=== PATIENT | male | born 1955 | race Caucasian/White ===

== ENCOUNTER 2022-04-10 11:00 | Emergency (ER) | payer MEDICARE, OTHER, SELFPAY ==
[2022-04-10 11:01] VITALS: BP 133/97; PULSE 76; RESP 16; TEMP 36.6; O2SAT 100; BMI 25.7
--- NOTE | 2022-04-10 11:44 | EDS_ITS ---
HPI History of Present Illness Chief Complaint: Chest Pain Informant: patient Narrative Narrative: Presents referred from his PCP office after being evaluated. Been having substernal chest pain for last 4 weeks on and off worse with laying down. He denies cough. Denies dyspnea. He states feels like a restless legs sensation in his chest. History of hyperlipidemia tobacco years ago. History of Mills's esophagus on omeprazole. He does have normal stools nonbloody no melena. No vomiting. Stress test over 2 years ago no heart caths. EKG from office no isolated T wave version leads III nonspecific. He had surgery left shoulder 6 weeks ago doing well. No exertional symptoms. He was sent here for rule out. Prior Similar Symptoms: No CVD Risk Factors: Positive for Hypercholesterolemia PFSH PFSH Home Medications omeprazole 40 mg capsule,delayed release 40 mg PO DAILY 04/10/22 [History Last Taken Unknown] pravastatin 10 mg tablet 10 mg PO DAILY 04/10/22 [History Last Taken Unknown] Allergy/AdvReac Type Severity Reaction Status Date / Time morphine Allergy Intermediate . Verified 04/10/22 11:02 Social History Smoking Status: Never smoker ROS ROS ED Constitutional Constitutional ED: Denies chills, fever(s) or sweats Eyes Eyes: Denies change in vision ENT ENT ED: Denies dysphagia or sore throat Cardiovascular Cardiovascular: Reports chest pain; Denies leg edema, palpitations or racing heartbeat Respiratory/Chest Respiratory/Chest: Denies cough, dyspnea or dyspnea on exertion Gastrointestinal Gastrointestinal: Denies abdominal pain, diarrhea, nausea or vomiting Genitourinary Genitourinary ED: Denies dysuria, hematuria or urinary frequency Musculoskeletal Musculoskeletal: Denies back pain, extremity pain or neck pain Integumentary Denies rash or wounds Neurologic Neurologic: Denies headache(s), paresthesias or weakness EXAM Physical Exam Const Vital Signs: 04/10/22 11:01 04/10/22 11:07 04/10/22 11:44 Temperature 97.9 F Temperature Source Temporal Pulse Rate 76 Respiratory Rate 16 Respiratory Effort Normal Non-Labored Blood Pressure 133/97 H Blood Pressure Mean 109 Pulse Ox 100 Oxygen Delivery Method Room Air Room Air 04/10/22 13:07 Temperature Temperature Source Pulse Rate 71 Respiratory Rate 20 H Respiratory Effort Blood Pressure 149/89 H Blood Pressure Mean 109 Pulse Ox 99 Oxygen Delivery Method Room Air Positive well nourished and well developed General Appearance ED: well developed and NAD HEENT Reports moist mucous membranes normocephalic and atraumatic Eyes PERRL, EOMs intact bilaterally and conjunctivae normal General Eye ED: Yes normal appearance of both eyes Neck no lymphadenopathy and supple General: Negative for tenderness Chest Wall Chest: Negative for tenderness Resp normal respiratory effort and normal air movement Effort and Inspection: symmetric chest movement; Negative for respiratory distress Cardio regular rate, regular rhythm and no murmurs Peripheral Pulses: pulses 2+ throughout GI normal to inspection, nondistended, normoactive bowel sounds and non-tender Palpation: Negative for guarding or rebound tenderness present Back/Spine no CVA tenderness and no thoracic nor lumbar tenderness Extremity normal to inspection General Extremety ED: Negative for edema or tenderness General Extremity: Negative for edema Neuro oriented x3 and no sensory deficits noted Sensorium / Orientation: awake and alert Skin no rashes or lesions noted and no wounds Heart Score History: Slightly/Non-Suspicious ECG: Normal Age: >/= 65 years Risk Factors: 1 or 2 Risk Factors Troponin: </= Normal Limit Score: 3 MDM MDM MDM Narrative Medical decision making narrative: Patient nontoxic. EKG normal. Cardiac work-up troponin negative x2. Low risk Wells criteria for PE with his recent surgery. D-dimer elevated subsequent CT of the chest negative for PE. Incidental finding of a right upper lobe pulmonary nodule 4.1 mm. This was discussed with the patient. Recommended from radiology for reimaging in 1 year. Discussed results with the patient. Follow- up with his PCP. All questions were answered. Lab Data Attestation: I reviewed the patient's lab results. Labs: Laboratory Results - last 24 hr 04/10/22 04/10/22 04/10/22 11:50 11:50 11:50 WBC 7.3 RBC 5.10 Hgb 14.7 Hct 44.5 MCV 87.3 MCH 28.8 MCHC 33.0 RDW Std Deviation 41.0 RDW Coeff of Joe 12.7 Plt Count 236 MPV 9.5 Immature Gran % (Auto) 0.300 Neut % (Auto) 55.6 Lymph % (Auto) 26.1 [place] % (Auto) 11.3 H Eos % (Auto) 5.6 H Baso % (Auto) 1.1 H Absolute Neuts (auto) 4.1 Absolute Lymphs (auto) 1.91 Nucleated RBC % 0 PT Cancelled INR Cancelled APTT Cancelled D-Dimer Quant (PE/DVT) Cancelled Sodium 141 Potassium 4.3 Chloride 107 Carbon Dioxide 29.0 Anion Gap 5 BUN 21 H Creatinine 1.02 Estim Creat Clear Calc 76.08 Est GFR (MDRD) Af Amer 93 Est GFR (MDRD) Non-Af 77 BUN/Creatinine Ratio 20.6 H Glucose 93 Calcium 9.7 Troponin I High Sens 5 04/10/22 04/10/22 12:36 14:00 WBC RBC Hgb Hct MCV MCH MCHC RDW Std Deviation RDW Coeff of Joe Plt Count MPV Immature Gran % (Auto) Neut % (Auto) Lymph % (Auto) [place] % (Auto) Eos % (Auto) Baso % (Auto) Absolute Neuts (auto) Absolute Lymphs (auto) Nucleated RBC % PT 12.9 INR 1.0 APTT 30.5 D-Dimer Quant (PE/DVT) 1.02 H* Sodium Potassium Chloride Carbon Dioxide Anion Gap BUN Creatinine Estim Creat Clear Calc Est GFR (MDRD) Af Amer Est GFR (MDRD) Non-Af BUN/Creatinine Ratio Glucose Calcium Troponin I High Sens 5 Radiography Diagnostic Testing: Clinical Impression(s) from Imaging Studies Chest CTA 04/10/22 13:13 IMPRESSION: Hyperinflation and emphysematous changes. 4.1 mm noncalcified nodule in the peripheral lateral aspect of the right upper lobe as seen on axial image #206. A 12 month follow-up is recommended. No evidence of pulmonary embolism. Electronically Signed: Marques Alvarado MD at 14:09 EDT , EKG Initial EKG: Attestation: I personally reviewed and interpreted this EKG as follows: Comments: Sinus rate of [address] changes isolated T wave version leads III. Nonspecific. Discharge Plan Triage Chief Complaint: Chest Pain ED Provider: Lino Telles Dx/Rx/DC Orders Clinical Impression: Chest pain, Lung nodule, Hx of hyperlipidemia Instructions: ED Chest Pain, Uncertain Cause, ED Pulmonary Nodule, Solitary Prescriptions: No Action omeprazole 40 mg capsule,delayed release(DR/EC) 40 mg PO DAILY pravastatin 10 mg tablet 10 mg PO DAILY Label Comments: take 1 tablet by mouth once daily Primary Care Provider: Adonis Cortes Referrals: Adonis Cortes MD [Primary Care Provider] - Activity Restrictions/Additional Instructions: Cardiac work-up negative. CT chest negative for PE. Noted a 4.1 mm right upper lobe peripheral nodule. Recommended imaging in 1 year. Follow-up with your doctor for further evaluation. Disposition Disposition: Home, Self Care
--- NOTE | 2022-04-10 11:44 | EKG12_ITS ---
Test Reason : Blood Pressure : / mmHG Vent. Rate : 074 BPM Atrial Rate : 074 BPM P-R Int : 166 ms QRS Dur : 092 ms QT Int : 414 ms P-R-T Axes : 054 -16 018 degrees QTc Int : 459 ms Normal sinus rhythm Normal ECG Confirmed by ROBERTO PHAN, BENJI ([id number]), news videotape editor MELANIE MELARA ([id number]) on 04/11/2022 10:38:11 AM Referred By: BARBARA Confirmed By:BENJI MEJIA MD
[2022-04-10 12:00] LABS: Absolute Lymphocyte Count 1.91 X10^3/uL (0.83-4.51); Absolute Neutrophil Count 4.1 X10^3/uL (2.0-7.7); Basophil# 0.08 X10^3/uL; Basophil% 1.1 % (0-1); Eosinophil# 0.41 X10^3/uL; Eosinophils% 5.6 % (0-5); Hematocrit 44.5 % (40-54); Hemoglobin 14.7 g/dL (13.0-16.5); Lymphocyte # 1.91 X10^3/ul (0.83-4.51); Lymphocyte % 26.1 % (19-41); Mean Corpuscular Hgb 28.8 pg (27.0-32.0); Mean Corpuscular Volume 87.3 fL (80-94); Mean Platelet Vol. 9.5 fl (6.2-12.0); Monocyte# 0.83 X10^3/uL; Monocyte% 11.3 % (0-10); NRBC Flagged by Analyzer 0 % (0-5); Neutrophil # 4.08 X10^3/uL (2.7-7.7); Neutrophil % 55.6 % (47-70); Platelet Count 236 K/mm3 (150-450); RBC Distribution Width CV 12.7 % (11.6-14.6); White Blood Count 7.3 K/mm3 (4.4-11.0)
[2022-04-10 12:11] LABS: Anion Gap 5 (5-15); BUN 21 mg/dL (7-18); BUN/Creat Ratio 20.6 RATIO (10-20); Calcium,Total 9.7 mg/dL (8.5-10.1); Chloride 107 mmol/L (98-107); Creatinine, Serum 1.02 mg/dL (0.70-1.30); EST Glomerular Filtration Rate 77 mL/min (>60); Est Glom Filt Rate - Afr Amer 93 mL/min (>60); Estimated Creatinine Clearance 76.08 ml/min; Glucose 93 mg/dL (74-106); Potassium 4.3 mmol/L (3.5-5.1); Sodium Level 141 mmol/L (136-145); Troponin-I HS (w/2H Reflex) 5 pg/mL (3.0-78.0)
[2022-04-10 12:50] LABS: Prothrombin Time (Protime)PT. 12.9 SECONDS (11.7-14.9)
[2022-04-10 12:51] LABS: Partial Thromboplast Time 30.5 Seconds (24.1-36.2)
[2022-04-10 13:07] VITALS: BP 149/89; PULSE 71; RESP 20; O2SAT 99
[2022-04-10 13:11] LABS: D-Dimer Quantitative (DVT/PE) 1.02 FEU/ug/m (0.27-0.49)
--- NOTE | 2022-04-10 13:12 | ED.RN ---
ELEVATED D-DIMER REPORTED TO DR JIMENEZ
--- NOTE | 2022-04-10 13:13 | CT_ITS ---
STUDY: CTA CHEST REASON FOR EXAM: Male, 66 years old. Chest pain, elevated dimer RADIATION DOSAGE (If Supplied By Facility): CTDIvol = ( 6.57 ) mGy, DLP = ( 310.75 ) mGycm TECHNIQUE: The examination was performed with the intravenous administration of IV 100mL Isovue-[id number]. Post-processing of the angiographic images was performed, with multiplanar reformation and 3D reconstruction. Individualized dose optimization techniques were used for this CT. COMPARISON: None. FINDINGS: Normal enhancement of the main pulmonary artery and right and left pulmonary arteries. Normal enhancement of the bilateral peripheral pulmonary arteries. There is no demonstrated pulmonary embolism. Normal thoracic aorta and visualized great vessels. There is no demonstrated aortic dissection. Normal heart and pericardium. Normal mediastinum. Normal hilar regions. Normal visualized trachea and bronchi. Hyperinflation. Mild degree of emphysematous changes. There is a 4.1 mm noncalcified nodule in the peripheral lateral aspect of the right upper lobe as seen on axial image #206. Normal pleura. Normal chest wall structures. There are degenerative changes of thoracic spine. Punctate nonobstructive calculus in the midpole calyx of the left kidney. Small hiatal hernia. CT/CTA Chest W/WO Contrast IMPRESSION: Hyperinflation and emphysematous changes. 4.1 mm noncalcified nodule in the peripheral lateral aspect of the right upper lobe as seen on axial image #206. A 12 month follow-up is recommended. No evidence of pulmonary embolism. Electronically Signed: Marques Alvarado MD at 14:09 EDT ,
[2022-04-10 13:52] LABS: Reflex Troponin-HS? (from REC) Y
[2022-04-10 14:24] LABS: Troponin-I HS 5 pg/mL (3.0-78.0)
[2022-04-10 15:06] VITALS: BP 140/86; PULSE 87; RESP 16; O2SAT 99
== END 2022-04-10 15:07 | disposition home or self-care (01) ==
PROVIDERS: Emergency Provider Emergency Medicine; PCP Family Medicine; Visit Provider Emergency Medicine
DX: R07.9 Chest pain, unspecified (principal); R91.1 Solitary pulmonary nodule; E78.00 Pure hypercholesterolemia, unspecified; K22.70 Barrett's esophagus without dysplasia; Z79.899 Other long term (current) drug therapy
CPT/HCPCS: 71275; 80048; 84484; 85025; 85379; 85610; 85730; 93005; 99284; Q9967; A4216